=== PATIENT | female | born 1955 | race Caucasian/White ===

== ENCOUNTER → 2020-10-27 12:23 | Outpatient (CLI) | payer OTHER | END | disposition home or self-care (01) | LOC: PPH VACUNA 12:23 | PROVIDERS: ATTEND Emergency Medicine Pediatric Emergency Medicine | DX: Z23 Encounter for immunization (principal) ==

== ENCOUNTER 2020-11-17 08:21 | Outpatient (CLI) | payer OTHER | END 2020-11-17 08:22 | disposition home or self-care (01) | LOC: PPH VACUNA 08:21 | PROVIDERS: ATTEND Emergency Medicine Pediatric Emergency Medicine | DX: Z23 Encounter for immunization (principal) ==